=== PATIENT | female | born 1950 | race African-American/Black ===

== ENCOUNTER → 2019-10-03 10:59 | Outpatient (CLI) | payer OTHER, SELFPAY ==
--- NOTE | ~2019-10-03 | MM_ITS ---
EXAMINATION: MM screening gopi BI w vinny HISTORY: Screening mammogram TECHNIQUE: Craniocaudal and mediolateral oblique 3-D tomosynthesis images were obtained and synthetic 2-D images were generated. CAD analysis was submitted and interpreted. COMPARISON: 09/30/2018, 01/29/2017, 01/02/2016 bilateral digital screening mammogram examinations BREAST PARENCHYMAL COMPOSITION: The breasts are almost entirely fatty. FINDINGS: Stable bilateral benign-appearing intramammary lymph nodes are noted bilaterally. The short There is no evidence of suspicious mass, calcification, or architectural distortion to suggest malig ronn in either breast. There has been no suspicious interval change. IMPRESSION: 1. No mammographic evidence of malignancy. 2. Recommend routine screening mammography in one year. BI-RADS Category 2: Benign finding(s). Reviewed, dictated and finalized at location A. OR ENLISTED ADVISOR
== END ==
PROVIDERS: PCP Emergency Medicine; Visit Provider Obstetrics & Gynecology
DX: Z12.31 Encounter for screening mammogram for malignant neoplasm of breast (principal)
CPT/HCPCS: 77063; 77067

== ENCOUNTER → 2020-10-03 11:12 | Outpatient (CLI) | payer OTHER, SELFPAY ==
--- NOTE | ~2020-10-03 | US_ITS ---
EXAMINATION: US venous doppler LE DATE: 10/03/2020 11:35 INDICATION: Right lower limb pain and varicose veins TECHNIQUE: Grayscale ultrasound images without and with compression and Doppler ultrasound images of the right lower extremity veins were obtained. COMPARISON: None. FINDINGS: The visualized portions of right common femoral vein, profunda (deep) femoral vein, femoral vein, pop liteal vein, peroneal trunk, posterior tibial veins, peroneal veins, gastrocnemius vein and greater s aphenous vein outflow are patent. IMPRESSION: 1. No deep venous thrombosis in the right lower limb. Reviewed, dictated and finalized at location B. 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
--- NOTE | ~2020-10-03 | XR_ITS ---
EXAMINATION: XR knee RT 2V DATE: 10/03/2020 11:55 INDICATION: Right knee pain. TECHNIQUE: 2 views of right knee were obtained. COMPARISON: None. FINDINGS: Bone alignment is normal. No fracture. There is mild tricompartmental osteoarthritis. No kn ee joint effusion. IMPRESSION: 1. Mild right knee osteoarthritis. Reviewed, dictated and finalized at location A. 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
--- NOTE | ~2020-10-03 | XR_ITS ---
EXAMINATION: XR tibia fibula RT 2V DATE: 10/03/2020 11:55 INDICATION: Right lower leg pain. TECHNIQUE: 2 views of right tibia and fibula were obtained. COMPARISON: None. FINDINGS: Bone alignment is normal. No fracture. There is mild right knee osteoarthritis. IMPRESSION: 1. Mild right knee osteoarthritis. Reviewed, dictated and finalized at location A. 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
== END ==
PROVIDERS: PCP Emergency Medicine; Visit Provider Emergency Medicine
DX: I73.9 Peripheral vascular disease, unspecified (principal); M17.11 Unilateral primary osteoarthritis, right knee; M79.661 Pain in right lower leg
CPT/HCPCS: 73560; 73590; 93971

== ENCOUNTER 2021-02-20 07:54 | Outpatient (CLI) | payer OTHER, SELFPAY ==
--- NOTE | ~2021-02-20 | US_ITS ---
US arterial ankle brachial ind INDICATION: Peripheral vascular disease. TECHNIQUE: Segmental pressures and plethysmographic and Doppler waveforms of the brachial and lower e xtremity arteries were obtained. COMPARISON: None. FINDINGS: Right and left brachial artery pressures of 177 mm Hg and 183 mm Hg, respectively, are concordant (no rmal difference <= 30 mmHg). The right ankle-brachial index (NIDA) is 1.17 (normal >= 0.9-1.0). The right great toe-brachial index (TBI) is 0.9 (normal >= 0.60). The left NIDA is 1.16. The left TBI is 0.66. IMPRESSION: 1. Normal bilateral ankle and toe brachial indices. Reviewed, dictated and finalized at location A.
== END 2021-02-20 07:55 | disposition home or self-care (01) ==
PROVIDERS: PCP Emergency Medicine; Visit Provider Internal Medicine Cardiovascular Disease
DX: I73.9 Peripheral vascular disease, unspecified (principal)
CPT/HCPCS: 93922

== ENCOUNTER 2021-05-21 01:42 | Day surgery (SDC) | payer OTHER, SELFPAY ==
[2021-05-08 10:42] VITALS: BMI 41.6
--- NOTE | 2021-05-20 12:09 | WPDANESEPPF ---
Anes - Initial Pre Proc Eval Procedure: Operation Date: 05/21/21 07:30 Proposed Procedures p Screening Colonoscopy - Martínez Pickard MD Date/Time: 05/20/21 12:09 Surgeon: Martínez Pickard MD Pre Op Diagnosis: neoplasm screening Patient Data Age: 70 Gender: F Height: 1.63 m Weight: 110 kg Allergies Allergy/AdvReac Type Severity Reaction Status Date / Time ezetimibe [From Zetia] Allergy Mild myalgia Verified 05/21/21 06:29 azithromycin Allergy Unknown Unknown Verified 05/21/21 06:29 clindamycin Allergy Unknown Unknown Verified 05/21/21 06:29 erythromycin base Allergy Unknown Anaphylactic Verified 05/21/21 06:29 Shock Penicillins Allergy Unknown Unknown Verified 05/21/21 06:29 Sulfa (Sulfonamide Allergy Unknown Unknown Verified 05/21/21 06:29 Antibiotics) sulfanilamide Allergy Unknown Unknown Verified 05/21/21 06:29 Home Medications Medication Instructions Recorded Confirmed Type aspirin 81 mg tablet,delayed 81 mg PO DAILY 09/19/19 05/08/21 History release alprazolam 0.25 mg tablet 0.25 mg PO BID PRN tablet 03/20/21 05/08/21 History lisinopril 40 mg tablet 40 mg PO DAILY #90 tablet 03/20/21 05/08/21 Rx metoprolol succinate 50 mg 50 mg PO DAILY #90 tablet 03/20/21 05/08/21 Rx tablet,extended release 24 hr pen needle, diabetic 29 gauge x #200 ea 05/01/21 05/01/21 Rx 1/2 insulin detemir U-100 [Levemir 30 unit SUBCUT HS 05/08/21 05/08/21 History FlexTouch U-100 Insuln] liraglutide [Victoza 3-Vinnie] 1.8 mg SUBCUT DAILY 05/08/21 05/08/21 History metformin 500 mg PO BID 05/08/21 05/08/21 History Patient hx anesthesia problems: none Family hx anesthesia problems: none PMFSH Past Medical History Medical History Anxiety Arthritis Bilateral hip joint arthritis Degenerative arthritis of knee, bilateral Diabetes Diabetic peripheral neuropathy Hemoglobin A1c less than 7.0% 7.2 on 08-22-20 HLD (hyperlipidemia) HTN (hypertension) Obesity MARIO on CPAP Type 2 diabetes mellitus with hyperglycemia Surgical History Surgical History History of hysterectomy Family History Family History Father Family history of lung cancer Mother Family history of heart disease in male family member before age 55 Family history of congestive heart failure Sibling Family history of heart disease in male family member before age 55 Other Diabetes mellitus Family history of alcoholism Hypertension Social History Social History Smoking status: Never smoker Second hand tobacco smoke exposure: Yes Alcohol intake: never Substance use: never Substance use type: does not use Living arrangements: with family Gender identity (if verbalized by the patient): Female Spiritual care concerns: No Agree to blood products: No Anes - Eval Final PreProcedure Day of Procedure 05/20/21 12:09 Patient weight: morbidly obese Heart: regular rate and rhythm Lungs: clear to auscultation and normal air movement Airway: Mallampati scale class III Neurological: alert and oriented Last oral intake: >/= 8 hours ASA classification: III Emergent: no Anesthetic plan: proceed Anesthesia type and monitoring: general GIVS and standard monitoring Informed Consent: The patient's anesthetic plan and its attendant risks and benefits were discussed with the patient/family/POA. Questions were solicited and answers provided to the satisfaction of the patient/family/POA.
[2021-05-21 06:30] VITALS: BP 172/87; PULSE 120; RESP 20; TEMP 36.3; O2SAT 99
[2021-05-21] MEDS: LACTATED RINGERS 1,000 ML 150 ML IV CONT (06:42)
[2021-05-21 06:48] LABS: Glucose Point of Care 202 mg/dl (65-105)
--- NOTE | 2021-05-21 06:58 | WPDGICN ---
Assessment and Plan Assessment and plan (1) Encounter for screening colonoscopy: Code(s): Z12.11 - Encounter for screening for malignant neoplasm of colon Status: Acute Assessment and Plan: Patient presents for screening colonoscopy. Last colonoscopy was 8 years ago. She was found to have hemorrhoids. Plan is for high-fiber diet further recommendations will be given after endoscopy. (2) Obesity: Code(s): E66.9 - Obesity, unspecified Status: Acute Assessment and Plan: Patient is overweight. Diet control increase activity is encouraged. GI Consult Note Consult date/time: 05/21/21 06:58 HPI: Mitch Bloom is a 70 year old female Presents for screening colonoscopy. Patient reports that her current weight appetite bowel movements are normal. Patient denies abdominal pain. He had she has had no bleeding. Family history is noncontributory. Past medical history is significant for diabetes and hypertension. Review of Systems Review of Systems: All systems reviewed & are unremarkable except as noted in HPI and below PMFSH Past Medical History Medical History Anxiety Arthritis Bilateral hip joint arthritis Degenerative arthritis of knee, bilateral Diabetes Diabetic peripheral neuropathy Hemoglobin A1c less than 7.0% 7.2 on 08-22-20 HLD (hyperlipidemia) HTN (hypertension) Obesity MARIO on CPAP Type 2 diabetes mellitus with hyperglycemia Surgical History Surgical History History of hysterectomy Family History Family History Father Family history of lung cancer Mother Family history of heart disease in male family member before age 55 Family history of congestive heart failure Sibling Family history of heart disease in male family member before age 55 Other Diabetes mellitus Family history of alcoholism Hypertension Social History Social History Smoking status: Never smoker Second hand tobacco smoke exposure: Yes Alcohol intake: never Substance use: never Substance use type: does not use Living arrangements: with family Gender identity (if verbalized by the patient): Female Spiritual care concerns: No Agree to blood products: No Meds Home Medications and Allergies Home Medications Medication Instructions Recorded Confirmed Type aspirin 81 mg tablet,delayed 81 mg PO DAILY 09/19/19 05/08/21 History release alprazolam 0.25 mg tablet 0.25 mg PO BID PRN tablet 03/20/21 05/08/21 History lisinopril 40 mg tablet 40 mg PO DAILY #90 tablet 03/20/21 05/08/21 Rx metoprolol succinate 50 mg 50 mg PO DAILY #90 tablet 03/20/21 05/08/21 Rx tablet,extended release 24 hr pen needle, diabetic 29 gauge x #200 ea 05/01/21 05/01/21 Rx 1/2 insulin detemir U-100 [Levemir 30 unit SUBCUT HS 05/08/21 05/08/21 History FlexTouch U-100 Insuln] liraglutide [Victoza 3-Vinnie] 1.8 mg SUBCUT DAILY 05/08/21 05/08/21 History metformin 500 mg PO BID 05/08/21 05/08/21 History Allergies Allergy/AdvReac Type Severity Reaction Status Date / Time ezetimibe [From Zetia] Allergy Mild myalgia Verified 05/21/21 06:29 azithromycin Allergy Unknown Unknown Verified 05/21/21 06:29 clindamycin Allergy Unknown Unknown Verified 05/21/21 06:29 erythromycin base Allergy Unknown Anaphylactic Verified 05/21/21 06:29 Shock Penicillins Allergy Unknown Unknown Verified 05/21/21 06:29 Sulfa (Sulfonamide Allergy Unknown Unknown Verified 05/21/21 06:29 Antibiotics) sulfanilamide Allergy Unknown Unknown Verified 05/21/21 06:29 Vital Signs Vital Signs - 24 hr 05/21/21 06:30 Temperature 97.4 F L Pulse Rate 120 H Respiratory Rate 20 Blood Pressure 172/87 H Pulse Oximetry 99 Exam Narrative: Physical exam
--- NOTE | 2021-05-21 07:08 | SUR.PREOP ---
0645: DR GUALLPA NOTIFIED PT'S BLOOD PRESSURE 172/88, HR 120. PT HAS NOT TAKEN HER BLOOD PRESSURE OR ANXIETY MEDS FOR 2 DAYS. NO NEW ORDERS.
[2021-05-21 07:19] VITALS: BP 121/84; PULSE 94; RESP 20; O2SAT 95
[2021-05-21 07:29] VITALS: BP 106/55; PULSE 103; RESP 23; O2SAT 98
[2021-05-21 07:31] LABS: Glucose Point of Care 194 mg/dl (65-105)
[2021-05-21 07:39] VITALS: BP 132/76; PULSE 52; RESP 32; O2SAT 98
== END 2021-05-21 07:48 | disposition home or self-care (01) ==
PROVIDERS: PCP Internal Medicine; Visit Provider Internal Medicine Gastroenterology
PROC: 0DJD8ZZ Inspection of Lower Intestinal Tract, Via Natural or Artificial Opening Endoscopic (ICD-10-PCS; CPT 45378; principal; 2021-05-21 07:30)
DX: Z12.11 Encounter for screening for malignant neoplasm of colon (principal); K64.8 Other hemorrhoids; I10 Essential (primary) hypertension; E11.42 Type 2 diabetes mellitus with diabetic polyneuropathy; E78.5 Hyperlipidemia, unspecified; G47.33 Obstructive sleep apnea (adult) (pediatric); F41.9 Anxiety disorder, unspecified; E66.01 Morbid (severe) obesity due to excess calories; Z68.41 Body mass index [BMI] 40.0-44.9, adult; Z79.82 Long term (current) use of aspirin; Z79.4 Long term (current) use of insulin; Z79.84 Long term (current) use of oral hypoglycemic drugs
CPT/HCPCS: G0121; 82948; J2704; J7120

== ENCOUNTER → 2021-08-14 13:34 | Outpatient (CLI) | payer OTHER, SELFPAY ==
--- NOTE | ~2021-08-14 | MM_ITS ---
EXAMINATION: MM screening gopi BI w vinny HISTORY: Screening TECHNIQUE: Craniocaudal and mediolateral oblique 3-D tomosynthesis images were obtained and synthetic 2-D images were generated. CAD analysis was submitted and interpreted. COMPARISON: No prior mammogram is available for comparison at this institution. BREAST PARENCHYMAL COMPOSITION: The breasts are almost entirely fatty. FINDINGS: There is no evidence of suspicious mass, calcification, or architectural distortion to sugg est malignancy in either breast. There has been no suspicious interval change. IMPRESSION: 1. No mammographic evidence of malignancy. 2. Recommend routine screening mammography in one year. BI-RADS Category 1: Negative Reviewed, dictated and finalized at location A. CTOR OPERATIONS
== END ==
PROVIDERS: PCP Internal Medicine; Visit Provider Obstetrics & Gynecology
DX: Z12.31 Encounter for screening mammogram for malignant neoplasm of breast (principal)
CPT/HCPCS: 77063; 77067

== ENCOUNTER → 2022-06-08 11:12 | Outpatient (CLI) | payer OTHER, SELFPAY ==
--- NOTE | ~2022-06-08 | DEXA_ITS ---
Bone Density Report Name: DIANE FU Age: 71 Sex: Female Ethnicity: Black Date of : 1950 Indication: postmenopausal; screening for osteoporosis; hysterectomy; Referring Provider: Caitlin Yates Study: Bone densitometry was performed. Exam Date: June 08, 2022 Accession number: [id number] Bone Density: Region BMD T-score Z-score Classification AP Spine (L1-L4) 1.388 3.1 4.6 Normal Femoral Neck (Left) 1.003 1.4 1.8 Normal Total Hip (Left) 1.128 1.5 1.8 Normal Femoral Neck (Right) 1.034 1.7 2.1 Normal Total Hip (Right) 1.136 1.6 1.8 Normal Total Hip Mean 1.132 1.6 1.8 Normal World Health Organization criteria for BMD impression classify patients as: Normal (T-score at or above -1.0), Osteopenia (T-score between -1.0 and -2.5), or Osteoporosis (T-score at or below -2.5). 10-year Fracture Risk: FRAX not reported because: All T-scores for Spine Total, Hip Total, Femoral Neck at or above -1.0 Previous Exams: Region Exam Age BMD T-score BMD Change BMD Change Date g/cm2 vs Baseline vs Previous AP Spine(L1-L4) 06/08/2022 71 1.388 3.1 0.127* 0.127* 07/11/2010 59 1.262 2.0 Total Hip(Left) 06/08/2022 71 1.128 1.5 0.056* 0.056* 07/11/2010 59 1.072 1.1 Total Hip(Right) 06/08/2022 71 1.136 1.6 0.085* 0.085* 07/11/2010 59 1.051 0.9 *Denotes significance at 95% confidence level, LSC for AP Spine = 0.022 g/cm2, LSC for Total Hip = 0.027 g/cm2 Clinical Information Provided by Patient: Has the following medical conditions: Hysterectomy Patient maximum height was 64 Menopause Age: 36 No regular weight bearing exercise Drinks caffeinated beverages Onset of menses at age 11 Number of children 1 Impression: The patient has normal bone mass. No significant bone loss was observed. Discussion: BONE DENSITY IS ABOVE THE MINIMUM DESIRABLE LEVEL AT ALL SKELETAL SITES TESTED. This patient?s bone mineral density is above the minimum desirable level (T-score -1.0 or better) at all sites measured. The patient should follow a healthful lifestyle (good nutrition with adequate calcium and vitamin D, and appropriate weight-bearing exercise). Follow-Up: Consider repeating this study in 5 years or sooner if there is some new clinical indication. Reported by: [facility] on 06/08/2022 11:31:00 AM. Reviewed, dictated and finalized a
== END ==
PROVIDERS: PCP Internal Medicine; Visit Provider Internal Medicine Endocrinology, Diabetes & Metabolism
DX: Z78.0 Asymptomatic menopausal state (principal)
CPT/HCPCS: 77080

== ENCOUNTER → 2022-11-11 12:29 | Outpatient (CLI) | payer OTHER, SELFPAY ==
--- NOTE | ~2022-11-11 | MM_ITS ---
EXAMINATION: MM screening [facility] BI w vinny HISTORY: Screening mammogram TECHNIQUE: Craniocaudal and mediolateral oblique 3-D tomosynthesis images were obtained and synthetic 2-D images were generated. CAD analysis was submitted and interpreted. COMPARISON: 08/14/2021, 10/03/2019, 09/30/2018 BREAST PARENCHYMAL COMPOSITION: The breasts are almost entirely fatty. FINDINGS: Bilateral intramammary lymph nodes are again noted. No suspicious mass, calcification, or a rchitectural distortion are identified in either breast to suggest malignancy. There has been no susp icious interval change. IMPRESSION: 1. No mammographic evidence of malignancy. 2. Recommend routine screening mammography in one year. BI-RADS Category 2: Benign finding(s). Reviewed, dictated and finalized at location A. S FACILITATOR
== END ==
PROVIDERS: PCP Internal Medicine; Visit Provider Internal Medicine
DX: Z12.31 Encounter for screening mammogram for malignant neoplasm of breast (principal)
CPT/HCPCS: 77063; 77067

== ENCOUNTER 2024-11-01 13:30 | Outpatient (CLI) | payer OTHER, SELFPAY ==
--- NOTE | ~2024-11-01 | MM_ITS ---
EXAMINATION: MM screening gopi BI w vinny HISTORY: Screening mammogram TECHNIQUE: Craniocaudal and mediolateral oblique 3-D tomosynthesis images were obtained and synthetic 2-D images were generated. CAD analysis was submitted and interpreted. COMPARISON: 11/11/2022, 08/14/2021 BREAST PARENCHYMAL COMPOSITION:Not Dense. The breasts are almost entirely fatty FINDINGS: No suspicious mass, calcification, or architectural distortion are identified in either cielo ast to suggest malignancy. There has been no suspicious interval change. IMPRESSION: No mammographic evidence of malignancy. Recommend routine screening mammography in one year. BI-RADS Category 1: Negative Reviewed, dictated and finalized at location . OGRAPHY TECH
== END 2024-11-01 13:31 | disposition home or self-care (01) ==
LOC: MICIMG 13:31
PROVIDERS: PCP Nurse Practitioner Family; Visit Provider Nurse Practitioner Family
DX: Z12.31 Encounter for screening mammogram for malignant neoplasm of breast (principal)
CPT/HCPCS: 77063; 77067